=== PATIENT | female | born 1995 | race Caucasian/White ===

== ENCOUNTER 2018-04-12 19:41 | Emergency (ER) | payer OTHER ==
[2018-04-12 22:02] LABS: ABS Basophils 0 10^3/ul (0-0.2); ABS Eosinophils 0.1 10^3/ul (0-0.6); ABS Lymphocytes 3.2 10^3/ul (1.0-4.8); ABS Monocytes 0.8 10^3/ul (0-0.8); ABS Neutrophils 6.4 10^3/ul (1.5-7.7); ABS Nucleated RBC 0 10^3/ul; Eosinophil % 1.1 %; Hematocrit 41 % (35-47); Lymphocyte % 30.1 %; Mean Corpuscular HGB Conc 34 g/dl (31-36); Mean Corpuscular Hemoglobin 31 pg (27-31); Mean Corpuscular Volume 92 fL (80-97); Mean Platelet Volume 8.7 fL (7.4-10.4); Nucleated Red Blood Cells % 0.3; Platelet Count 317 10^3/ul (150-450); Red Blood Count 4.47 10^6/ul (4.00-5.40); Red Cell Distribution Width 13 % (10.5-15); White Blood Count 10.5 10^3/ul (3.5-10.8)
[2018-04-12 22:10] LABS: INR 0.94 (0.77-1.02)
[2018-04-12 22:21] LABS: EGFR Non-African American 88.9 (>60)
[2018-04-12] MEDS ORDERED: Butalb/Acetamin/Caff TAB* 1 TAB PO ONE (23:58)
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
[2018-04-13] MEDS ORDERED: Butalb/Acetamin/Caff TAB* 1 TAB PO ONE (01:28)
[2018-04-13 01:37] VITALS: BP 122/74
== END 2018-04-13 01:54 | disposition home or self-care (01) ==
LOC: ED 19:41
DX: R51 Headache (principal); Z87.891 Personal history of nicotine dependence
CPT/HCPCS: 36415; 70450; 80053; 84702; 85025; 85610; 85730; 99282; A9270-GY